=== PATIENT | male | born 1995 | race Caucasian/White ===

== ENCOUNTER 2020-08-23 22:28 | Emergency (ER) | payer BC ==
[2020-08-23] MEDS ORDERED: Lidocaine 2% 5 ML SDV INJECT ONE (22:37)
[2020-08-23] MEDS ORDERED: ceFAZolin 1 GM in Premix Bag 1 BAG IV ONE (22:37)
--- NOTE | 2020-08-23 22:38 | EDM.PDOC ---
ED HPI GENERAL MEDICAL PROBLEM - General Chief Complaint: Trauma Stated Complaint: FINGER AMPUTATION Time Seen by Provider: 08/23/20 22:33 Source of Information: Reports: Patient History Limitations: Reports: No Limitations - History of Present Illness INITIAL COMMENTS - FREE TEXT/NARRATIVE: Patient is a 24-year-old male who presents today for amputation of his right DIP joint. Patient dates he was using device when it cut his finger off. Patient was at a controlled bleeding with pressure. Patient was brought in by EMS vital stable bleeding fentanyl in route. Patient any other injuries. Patient is pain is 7 out of 10 before the fentanyl now about 4 out of 10. Patient denies any other complaints and had a tetanus done 4 years ago. - Related Data Allergies Allergy/AdvReac Type Severity Reaction Status Date / Time No Known Allergies Allergy Verified 03/15/16 13:15 Home Meds: Home Meds . [No Known Home Meds] 03/15/16 [History] Past Medical History Cardiovascular History: Reports: Other (See Below) Other Cardiovascular History: " heart retains potassium " Social & Family History - Family History Family Medical History: No Pertinent Family History Review of Systems - Review of Systems Review Of Systems: See Below Constitutional: Reports: No Symptoms Eyes: Reports: No Symptoms Ears: Reports: No Symptoms Nose: Reports: No Symptoms Mouth/Throat: Reports: No Symptoms Respiratory: Reports: No Symptoms Cardiovascular: Reports: No Symptoms GI/Abdominal: Reports: No Symptoms Genitourinary: Reports: No Symptoms Musculoskeletal: Reports: Hand Pain Skin: Reports: No Symptoms Neurological: Reports: No Symptoms Psychiatric: Reports: No Symptoms ED EXAM, GENERAL - Physical Exam Exam: See Below Exam Limited By: No Limitations General Appearance: Alert, WD/WN, No Apparent Distress Respiratory/Chest: No Respiratory Distress, Lungs Clear, Normal Breath Sounds Cardiovascular: Normal Peripheral Pulses, Regular Rate, Rhythm Peripheral Pulses: 2+: Radial (L), Radial (R) GI/Abdominal: Normal Bowel Sounds Extremities: Normal Range of Motion. No: Normal Inspection (amputation of 2nd right DIP) Neurological: Alert, Oriented, Normal Cognition, Normal Gait Course - Vital Signs Last Recorded V/S: Last Vital Signs Temp 98 F 08/23/20 23:26 Pulse 82 08/23/20 23:26 Resp 16 08/23/20 23:26 BP 148/85 H 08/23/20 23:26 Pulse Ox 94 L 08/23/20 23:26 - Orders/Labs/Meds Orders: Active Orders 24 hr Category Date Time Status Hand Comp Min 3V Rt [CR] Stat Exams 08/23/20 22:33 Taken Meds: Medications Discontinued Medications Generic Name Dose Route Start Last Admin Trade Name Ronda PRN Reason Stop Dose Admin Cefazolin Sodium/Dextrose 1 gm 50 mls @ 100 mls/hr 08/23/20 22:37 08/23/20 23:04 / Premix IV 08/23/20 23:06 100 mls/hr ONETIME ONE Administration Lidocaine 5 ml 08/23/20 22:37 08/23/20 23:24 Lidocaine 2% 5 Ml Sdv INJECT 08/23/20 22:38 Not Given ONETIME ONE Lidocaine HCl Confirm 08/23/20 22:37 08/23/20 23:24 Lidocaine 1% 5 Ml Sdv Administered 08/23/20 22:38 5 ml Dose Administration 5 ml .ROUTE .STK-MED ONE Departure - Departure Time of Disposition: 23:39 Disposition: Home, Self-Care 01 Condition: Good Clinical Impression: Amputation, finger, traumatic - Discharge Information *PRESCRIPTION DRUG MONITORING PROGRAM REVIEWED*: Not Applicable *COPY OF PRESCRIPTION DRUG MONITORING REPORT IN PATIENT JAIME: Not Applicable Instructions: Traumatic Finger Amputation Forms: ED Department Discharge Additional Instructions: The following information is given to patients seen in the emergency department who are being discharged to home. This information is to outline your options for follow-up care. We provide all patients seen in our emergency department with a follow-up referral. The need for follow-up, as well as the timing and circumstances, are variable de pending upon the specifics of your emergency department visit. If you don't have a primary care physician on staff, we will provide you with a referral. We always advise you to contact your personal physician following an emergency department visit to inform them of the circumstance of the visit and for follow-up with them and/or the need for any referrals to a consulting specialist. The emergency department will also refer you to a specialist when appropriate. This referral assures that you have the opportunity for follow-up care with a specialist. All of these measure are taken in an effort to provide you with optimal care, which includes your follow-up. Under all circumstances we always encourage you to contact your private physician who remains a resource for coordinating your care. When calling for follow-up care, please make the office aware that this follow-up is from your recent emergency room visit. If for any reason you are refused follow-up, please contact the [facility] Emergency Department at and asked to speak to the emergency department charge nurse. Please follow up with your primary care physician. If you do not have a primary care physician, see below: Nay Zaragoza MD Hand and Wrist Surgery [address] [place] [place] [address] [address] You were seen today at the amputation of your right index finger. The finger is empty at the tip of it and will not be replaced tonight. We spoke to the hand surgeon and Jeana made him aware and he or his recommendations. We he wants you to follow-up with on Wednesday we have provided the address above and also the phone number. Please try to arrive there at 9 AM. Sepsis Event Note (ED) - Focused Exam Vital Signs: Vital Signs Temp Pulse Resp BP Pulse Ox 08/23/20 23:26 98 F 82 16 148/85 H 94 L - My Orders Last 24 Hours: My Active Orders 08/23/20 22:33 Hand Comp Min 3V Rt [CR] Stat - Assessment/Plan Last 24 Hours: My Active Orders 08/23/20 22:33 Hand Comp Min 3V Rt [CR] Stat Plan: Patient is a 24-year-old male who presents today for amputation of his right index DIP joint. Seems to be a clean break. Patient was given Ancef the patient is up-to-date on tetanus. We spoke to Dr. Josselyn Hills and patient to be seen on Wednesday morning. Patient given dressing changes at home antibiotics.
[2020-08-23 23:29] VITALS: BP 148/85; PULSE 82
--- NOTE | 2020-08-24 00:43 | CR ---
INDICATION: Second digit amputation at the DIP joint. COMPARISON: 03/15/2016 right hand radiographs. FINDINGS/IMPRESSION: Right hand, three views. Amputation of the right 2nd finger through the DIP joint. The amputated distal portion of the digit has been placed nearby, included in the radiographs. No fractures are seen. No radiopaque foreign bodies. Dictated by Curt Agarwal MD @ 08/24/2020 12:07:52 AM Dictated by: Curt Agarwal MD @ 08/24/2020 00:09:04 (Electronically Signed)
== END 2020-08-23 23:54 | disposition home or self-care (01) ==
LOC: MW.ED 22:28
DX: S68.110A Complete traumatic metacarpophalangeal amputation of right index finger, initial encounter (principal); W26.8XXA Contact with other sharp object(s), not elsewhere classified, initial encounter
CPT/HCPCS: 73130; 96365; 99284; J0690